=== PATIENT | female | born 1995 | race Caucasian/White ===

== ENCOUNTER → 2019-12-02 | Outpatient (CLI) | payer MEDICAID, OTHER ==
[~2019-12-02] MED LIST: MULT-974 PO
--- NOTE | 2019-12-02 14:45 | Diagnostic Imaging Report ---
INDICATION: survey. TECHNIQUE: Multiple real-time grayscale images were obtained over the gravid uterus. COMPARISON: None FINDINGS: There is a single live fetus in a cephalic presentation. heart rate was recorded at 150 beats per minute. Placenta is anterior. Amniotic fluid index is within normal limits. survey shows kidneys, bladder, and stomach to be unremarkable. There is a four-chamber heart. There is a three-vessel cord with normal insertion. spine is somewhat limited in evaluation. brain was limited in evaluation. Biometrical measurements are as follows: Biparietal 4.96 cm, age 21 weeks 1 days. Head circumference 18.32 cm, age 20 weeks 5 days. Abdominal circumference 15.47 cm, age 20 weeks 5 days. Femur length 3.53 cm, age 21 weeks 2 days. Sonographic estimate age: 21 weeks 0 days. Sonographic estimated date of delivery: 04/13/2020. Estimated Weight: 383 gm (+/- 56 gm). LMP percentile: 54%. heart rate: 150 beats per minute. number: 1 of 1. IMPRESSION: Single live IUP of 21 weeks 0 days gestational age. Estimated date of confinement sonographically is 04/13/2020. survey is unremarkable, although brain and spine are somewhat limited in evaluation. Dictated by: Dictated on workstation # [id number]
== END ==
LOC: RAD 10:43
PROVIDERS: ATTEND Obstetrics & Gynecology
DX: Z34.91 Encounter for supervision of normal pregnancy, unspecified, first trimester (principal); Z3A.21 21 weeks gestation of pregnancy
CPT/HCPCS: 76805

== ENCOUNTER 2020-04-06 15:54 | Inpatient (IN) | payer OTHER ==
[2020-04-06] VITALS (32 sets, daily range): BP systolic 116–166; BP diastolic 61–87
[~2020-04-06] VITALS: Ht 167.7 cm; Wt 72.8 kg
[~2020-04-06 15:54] MED LIST changes: +ERYTHROMYCIN OPHTH OINT 1 GM (SINGLE USE) TUBE ONE; +PETROLATUM JELLY(VASELINE) 49 GM JAR ONE; +PHYTONADIONE (VIT. K) NEONATAL 1 MG/0.5 ML AMP ONE
[2020-04-06] MEDS ORDERED: D5 LR IV SOLUTION 1,000 ML IV SCH (16:01)
--- NOTE | 2020-04-06 16:04 | NUR ---
JCARLOS LITTLE presented to unit via ambulatory, accompanied by , for augmentation of labor. JCARLOS LITTLE weighed, gowned, voided, and to bed. EFHM and TOCO applied, VS taken. JCARLOS LITTLE oriented to bed controls, call light, TV, heat, and A/C controls.
[2020-04-06] MEDS ORDERED: MINERAL OIL CONCENTRATE 99.9% 15 ML UDC TOP PRN (16:15)
[2020-04-06 16:38] LABS: BASOPHILS % (AUTO) 0 % (0-10); EOSINOPHILS # (AUTO) 0.1 10^3/uL (0.0-0.3); EOSINOPHILS % (AUTO) 0 % (0-10); HEMATOCRIT 30 % (35-52); LYMPHOCYTES # (AUTO) 1.1 X 10^3 (1.0-4.0); LYMPHOCYTES % (AUTO) 10 % (12-44); MEAN CORPUSCULAR HEMOGLOBIN 28 PG (25-34); MEAN CORPUSCULAR HGB CONC 33 G/DL (32-36); MEAN CORPUSCULAR VOLUME 85 FL (80-99); MEAN PLATELET VOLUME 10.5 FL (7.4-10.4); MONOCYTES # (AUTO) 0.9 X 10^3 (0.0-1.0); MONOCYTES % (AUTO) 7 % (0-12); NEUTROPHILS # (AUTO) 9.7 X 10^3 (1.8-7.8); NEUTROPHILS % (AUTO) 82 % (42-75); PLATELET COUNT 231 10^3/uL (130-400); RED CELL DISTRIBUTION WIDTH 12.9 % (10.0-14.5); WHITE BLOOD COUNT 11.8 10^3/uL (4.3-11.0)
--- NOTE | 2020-04-06 16:50 | NUR ---
Jaylen Gay CRNA called for epidural placement. Plan to get epidural before Dr Foster comes to [facility].
[2020-04-06] MEDS ORDERED: fentaNYL 2 mcg/ml BUPIVA 0.125 100 ML ONE (17:23)
--- OUTSIDE RECORDS SUMMARY | 2020-04-06 17:50 | XMS REPORT | Continuity of Care Document ---
Author Organization Unknown Address Unknown Phone Unavailable Allergies Active Description Code Type Severity Reaction Onset Reported/Identified Relationship to Patient Clinical Status Yes No Known Drug Allergies [id number] Drug Allergy Unknown N/A 12/28/2013 Medications There is no data. Problems Date Dx Coded Attending Type Code Diagnosis Diagnosed By 04/06/2020 CONSUELO ESPINOZA DO Ot Z34.9 1 ENCNTR FOR SUPRVSN OF NORMAL PREG, UNSP, 04/06/2020 CONSUELO ESPINOZA DO Ot Z3A.2 1 21 WEEKS GESTATION OF 04/06/2020 CONSUELO ESPINOZA DO Ot Z34.9 1 ENCNTR FOR SUPRVSN OF NORMAL PREG, UNSP, 04/06/2020 CONSUELO ESPINOZA DO Ot Z3A.2 1 21 WEEKS GESTATION OF Procedures There is no data. Results Test Result Range Complete blood count (CBC) with automate d white blood cell (WBC) differential - 04/06/20 16:25 Blood leukocytes automated count (number/volume) 11.8 10*3/uL 4.3-11.0 Blood erythrocytes automated count (number/volume) 3.57 10*6/uL 4.35-5.85 Venous blood hemoglobin measurement (mass/volume) 10.0 g/dL 11.5-16.0 Blood hematocrit (volume fraction) 30 % 35-52 Automated erythrocyte mean corpuscular volume 85 [ foz_us] 80-99 Automated erythrocyte mean corpuscular h emoglobin (mass per erythrocyte) 28 pg 25-34 Automated erythrocyte mean corpuscular h emoglobin concentration measurement (mass/volume) 33 g/dL 32-36 Automated erythrocyte distribution width ratio 12. 9 % 10.0- 14.5 Automated blood platelet count (count/volume) 231 10*3/uL 130-400 Automated blood platelet mean volume measurement 10.5 [foz_us] 7.4-10.4 Automated blood neutrophils/100 leukocytes 82 % 42-75 Automated blood lymphocytes/100 leukocytes 10 % 12-44 Blood monocytes/100 leukocytes 7 % 0-12 Automated blood eosinophils/100 leukocytes 0 % 0-10 Automated blood basophils/100 leukocytes 0 % 0-10 Blood neutrophils automated count (number/volume) 9.7 10*3 1.8-7.8 Blood lymphocytes automated count (number/volume) 1.1 10*3 1.0-4.0 Blood monocytes automated count (number/volume) 0. 9 10*3 0.0-1.0 Automated eosinophil count 0.1 10*3/uL 0 .0-0.3 Automated blood basophil count (count/volume) 0.0 10*3/uL 0.0-0.1 Blood type T Indirect antibody screen pa baldev - 04/06/20 16:25 WRISTBAND NUMBER [id number] NRG ABO+Rh group AP NRG Blood group antibody screen NEGATIVE NR G Encounters ACCT No. Visit Date/Time Discharge Status Pt. Type Provider Facility Loc./Unit Complaint [id number] 12/02/2019 10:43:00 020 23:59:59 CLS Outpatient CONSUELO ESPINOZA DO Via [facility] RAD SURVEY [id number] 12/28/2013 22:31:00 014 01:05:00 DIS Emergency [id number] 04/06/2020 15:54:[address] Inpatient CONSUELO ESPINOZA DO Via [facility] LDRP INDUCTION
[2020-04-06] MEDS ORDERED: LACTATED RINGERS 1,000 ML IV SCH (17:59)
[2020-04-06] MEDS ORDERED: NALOXONE 0.4 MG/ML 1 ML (NARCAN) VIAL IV PRN ×2 (18:00)
[2020-04-06] MEDS ORDERED: ONDANSETRON 4 MG/2 ML (SDV) Z0FRAN IV PRN (18:00)
[2020-04-06] MEDS ORDERED: EPIDURAL (fentaNYL 2 MCG/ML BUPIVA 0.125%)100 ML BAG EPI SCH (18:00)
[2020-04-06] MEDS ORDERED: diphenhydrAMINE 50 MG/ML INJ (BENADRYL) IV PRN (18:00)
[2020-04-06] MEDS ORDERED: METOCLOPRAMIDE INJ 10 MG/2 ML (REGLAN) IV PRN (18:00)
--- NOTE | 2020-04-06 18:17 | NUR ---
Dr Foster updated on pt status. Epidural placed. UC 2-4 min, pt does not CO pain. Reactive FHT. SVE 7cm per this RN.
--- NOTE | 2020-04-06 19:14 | NUR ---
Report given to Sydney Will RN. Dr Foster at bedside for SVE and AR[facility].
[2020-04-06] MEDS ORDERED: OXYTOCIN PRE-MIX DRIP 500 ML IV ONE (19:18)
[2020-04-06] MEDS ORDERED: LIDOCAINE 1% INJ 20 ML 20 ML VIAL ONE (19:18)
[2020-04-06] MEDS ORDERED: OXYTOCIN PRE-MIX DRIP 500 ML IV SCH (20:33)
[2020-04-06] MEDS ORDERED: CATHETER FLUSH 10 ML SYR IV SCH (22:00)
[2020-04-07] VITALS (10 sets, daily range): BP systolic 111–132; BP diastolic 57–75
[2020-04-07] MEDS ORDERED: MISOPROSTOL 200 MCG (CYTOTEC) TABLET ONE (00:10)
[2020-04-07] MEDS ORDERED: OXYTOCIN PRE-MIX DRIP 500 ML IV SCH (00:12)
--- NOTE | 2020-04-07 00:12 | NUR ---
fundal massage given. no bleeding noted at this time. Informed dr hawkins that this rn will hold rectal cytotec.
[2020-04-07] MEDS ORDERED: WITCH HAZEL(TUCKS) 40 EA JAR TOP PRN (00:15)
[2020-04-07] MEDS ORDERED: BENZOCAINE/MENTHOL (DERMOPLAST) 60 ML CAN TP PRN (00:15)
[2020-04-07] MEDS ORDERED: TETANUS,DIPTH,PERTUSS P/F (BOOSTRIX) 0.5 ML VIAL IM ONE (00:15)
[2020-04-07] MEDS ORDERED: DIBUCAINE (NUPERCAINAL) 1% OINT 30 GM TOP PRN (00:15)
[2020-04-07] MEDS ORDERED: MISOPROSTOL 200 MCG (CYTOTEC) TABLET PR ONE (00:15)
[2020-04-07] MEDS ORDERED: MEASLES,MUMPS,RUBELLA 1 EA INJ SQ ONE (00:15)
--- NOTE | 2020-04-07 00:20 | OB Labor & Delivery Record ---
Vag Delivery Note Vag Delivery Note Date of Delivery: 04/07/20 Preoperative Diagnosis: Stefanie Hernandez is a 24 /Para 1/ 0,Gestational Age 38 6/7 weeks, in labor (scheduled for induction on 04/07/20) Postoperative Diagnosis: Same Surgeon: CONSUELO ESPINOZA Anesthesia: epidural Delivery Type: vaginal Findings: Viable female infant, apgars 8/9, weight 7#14 oun stuart Lacerations: Intact placenta with 3 vessel cord. No nuchal cord, body cord or shoulder dystocia Cytotec 800 mcg placed for hemorrhage prophylaxis Estimated Blood Loss: 400 ml Complications: None Condition: Stable Description of Procedure: The patient is a 24 year old female who presented from the office for labor (she was 7 cm dilated in the office). She was admitted and informed consent was obtained. Her labor course was remarkable for AROM. And Augmentation. She progressed to complete dilatation and began to push. She was then set up for delivery. The infant's head was delivered atraumatically in the JEREMIAS position. The shoulders and remainder of the infant's body were then delivered without difficulty. Upon delivery, the head was held below the level of the perineum and the mouth and nares were bulb suctioned. The cord was doubly clamped and cut and the infant was handed off to the pediatric staff. An intact placenta with 3-vessel cord delivered via Carlos Manuel and there was found to be minimal bleeding.~ Vigorous fundal massage was performed and the fundus was found to be firm. IV oxytocin was given. Examination of the vagina and perineum revealed a 2nd laceration repaired in the usual fashion with 3-0 vicryl suture. Following the repair, sponge, instrument and needle counts were correct. Mom and baby were both in stable condition in the labor suite. Vitals - Labs Vital Signs - I&O Vital Signs Date Time Temp Pulse Resp B/P (MAP) Pulse Ox O2 Delivery O2 Flow Rate FiO2 04/06/20 22:00 87 126/82 (97) 100 Room Air 04/06/20 21:45 90 125/78 (94) 100 Room Air 04/06/20 21:30 85 116/72 (87) 100 Room Air 04/06/20 21:15 89 99 Room Air 04/06/20 21:00 93 117/65 (82) 98 Room Air 04/06/20 20:45 84 123/73 (90) 100 Room Air 04/06/20 20:30 36.6 78 120/73 (89) 100 Room Air 04/06/20 20:15 86 123/76 (92) 100 Room Air 04/06/20 20:00 78 125/70 (88) 100 Room Air 04/06/20 19:45 84 123/80 (94) 100 Room Air 04/06/20 19:30 78 130/75 (93) 100 Room Air 04/06/20 19:15 35.8 86 124/75 (91) 100 Room Air 04/06/20 18:55 126/73 (90) 100 Room Air 04/06/20 18:50 96 129/75 (93) 100 Room Air 04/06/20 18:45 86 126/73 (90) 100 Room Air 04/06/20 18:40 93 135/69 (91) 100 Room Air 04/06/20 18:35 90 131/61 (84) 100 Room Air 04/06/20 18:30 88 128/64 (85) 100 Room Air 04/06/20 18:25 87 126/67 (86) 100 Room Air 04/06/20 18:20 93 127/66 (86) 100 Room Air 04/06/20 18:17 95 127/67 (87) 100 Room Air 04/06/20 18:14 94 129/67 (87) 100 Room Air 04/06/20 18:11 91 130/69 (89) 100 Room Air 04/06/20 18:08 94 129/69 (89) 100 Room Air 04/06/20 18:05 101 126/74 (91) 100 Room Air 04/06/20 18:02 90 122/66 (84) 100 Room Air 04/06/20 17:59 90 124/68 (86) 100 Room Air 04/06/20 17:56 95 124/69 (87) 100 Room Air 04/06/20 17:50 90 121/66 (84) 100 Room Air 04/06/20 16:15 36.5 83 16 125/78 (94) 100 Room Air 04/06/20 16:15 36.5 83 16 100 Room Air Labs Laboratory Tests 04/06/20 16:25: White Blood Count 11.8H, Red Blood Count 3.57L, Hemoglobin 10.0L, Hematocrit 30L , Mean Corpuscular Volume 85, Mean Corpuscular Hemoglobin 28, Mean Corpuscular Hemoglobin Concent 33, Red Cell Distribution Width 12.9, Platelet Count 231, Mean Platelet Volume 10.5H, Neutrophils (%) (Auto) 82H, Lymphocytes (%) (Auto) 10L, Monocytes (%) (Auto) 7, Eosinophils (%) (Auto) 0, Basophils (%) (Auto) 0, Neutrophils # (Auto) 9.7H, Lymphocytes # (Auto) 1.1, Monocytes # (Auto) 0.9, Eosinophils # (Auto) 0.1, Basophils # (Auto) 0.0 CONSUELO ESPINOZA DO Apr 07, 2020 00:20
[2020-04-07] MEDS ORDERED: FERR325T18 PO (00:23)
[2020-04-07] MEDS ORDERED: ACET-93 PO (00:23)
[2020-04-07] MEDS ORDERED: DCS100C PO (00:23)
[2020-04-07] MEDS ORDERED: IBUP-844 PO (00:23)
--- NOTE | 2020-04-07 00:27 | NUR ---
ff u/0. minimal rubra. pt denies needs at this time.
--- NOTE | 2020-04-07 00:27 | Discharge Inst-Women's Service ---
Discharge Inst-Women's Serv Depart Medication/Instructions New, Converted or Re-Newed RX: Other (Please call or transmit Rx to pharmacy of choice) Final Diagnosis Labor Advanced cervical dilation Problems Reviewed?: Yes Consults/Follow Up Additional Follow Up: Yes (1 week with [facility]; 6 weeks for pp exam) Activity Activity: Activity as Tolerated Driving Instructions: You May Drive NO SMOKING: NO SMOKING Nothing Inside Vagina: No Douching, No [place], No Tampons Diet Discharge Diet: No Restrictions Symptoms to Report to : Swelling Increased, Bleeding Excessive, Pain Increased, Fever Over 101 Degrees F, Vaginal Bleeding Increase, Cramps in Feet or Legs, Vaginal Discharge Foul For Any Problems or Questions: Contact Your Physician Skin/Wound Care Bathing Instructions: CONSUELO Rodriguez DO Apr 07, 2020 00:27
--- NOTE | 2020-04-07 00:42 | NUR ---
Pt at this time. fundal massage done. ff u/0. minimal rubra noted.
--- NOTE | 2020-04-07 00:57 | NUR ---
ff u/0. Minimal rubra. Pt holding infant. Bonding well.
[2020-04-07] MEDS ORDERED: IBUPROFEN 600 MG (MOTRIN) TAB PO ONE (01:17)
--- NOTE | 2020-04-07 01:20 | NUR ---
This rn called to room. pt vomitting. ff u/0, minimal rubra. cool rag given. zofran given per anesthesia's orders. So at bedside holding . Pt states feeling better. Lights dimmed.
[2020-04-07] MEDS: IBUPROFEN 600 MG (MOTRIN) TAB PO SCH ×3 (01:22→17:31)
--- NOTE | 2020-04-07 01:55 | NUR ---
Pt sitting in dim room with so and at bedside. States nausea is better. fundal massage done. minimal rubra. v pad saturated, whitley care done and pad changed. panties on. gown changed. epidural catheter removed and bandaid to site. pt transferred to . moved to room 310 per accompanied by this rn, so, , and mckenna somers, rn. Pt to bed, oriented to room, call light in reach, instructions given. mckenna somers in room giving instructions. will monitor.
[2020-04-07] MEDS ORDERED: CATHETER FLUSH 10 ML SYR IV SCH (06:00)
--- NOTE | 2020-04-07 10:32 | Progress Note ---
Standard Progress Note Progress Notes/Assess & Plan Date Seen by a Provider: Apr 07, 2020 Time Seen by a Provider: 10:15 Progress/Assessment & Plan Subjective: Ms. Hernandez is PPD #0 from a . This morning she admits to feeling better today than yesterday and admits that the bleeding has slowed. Objective: Vital signs are stable Heart: Regular rate and rhythm without appreciable murmur Lungs: Clear to auscultation with good respiratory effort Abdomen: Good bowel sounds, no rebound or guarding, fundus 6 cm below umbilicus that is mildly tender Extremities: No cyanosis or clubbing, trace edema of lower extremities Assessment: PPD#0 Plan: care and pain management. SAHARA GONZALEZ DO Apr 07, 2020 10:32
[2020-04-07] MEDS: ACETAMINOPHEN 500 MG TAB (TYLENOL) PO SCH ×2 (10:33→20:16)
[2020-04-07] MEDS: PRENATAL VITAMIN 1 EA TAB PO SCH (10:33)
[2020-04-07] MEDS: DOCUSATE SODIUM 100 MG (COLACE) CAP PO SCH ×2 (10:33→20:16)
--- NOTE | 2020-04-07 10:34 | Anesthesia-Regional Post-Op ---
Regional Patient Condition Mental Status: Alert, Oriented x3 Circulation: Same as Pre-Op Headache: Absent Sensation: Full Recovery Motor Block: Absent Post Op Complications Complications None Follow Up Care/Instructions Patient Instructions None needed. Anesthesia/Patient Condition Patient is doing well, no complaints, stable vital signs, no apparent adverse anesthesia problems. No complications reported per nursing. ASHLEE STEPHEN CRNA Apr 07, 2020 10:34
[2020-04-07] MEDS: FERROUS SULF 325 MG (IRON) TAB PO SCH (10:35)
--- NOTE | 2020-04-07 10:38 | NUR ---
initial shift assessment completed, see interventions for further.
--- NOTE | 2020-04-07 15:20 | NUR ---
infant remains in room- no c/o's voiced.
--- NOTE | 2020-04-07 19:16 | NUR ---
report given to next shift.
--- NOTE | 2020-04-07 20:10 | NUR ---
INITIAL SHIFT ASSESSMENT DONE. PT C/O MILD ABD CRAMPING AND DISCOMFORT. TYLENOL ADMINISTERED. PT DENIES ANY FURTHER NEEDS AT THIS TIME. AND BABY AT SIDE.
--- NOTE | 2020-04-07 22:02 | NUR ---
PT REPORTS PAIN CONTROLLED WITH TYLENOL. DENIES ANY NEEDS AT THIS TIME.
--- NOTE | 2020-04-08 | NUR ---
MOTRIN ADMINISTERED. PT DENIES ANY NEEDS OR C/O'S.
[2020-04-08] MEDS: IBUPROFEN 600 MG (MOTRIN) TAB PO SCH ×2 (00:02→06:07)
--- NOTE | 2020-04-08 02:10 | NUR ---
PT NOTED TO BE SLEEPING WITH BABY IN ARMS. BABY PLACED IN OPEN CRIB AND PT RETURNS TO SLEEP WITHOUT C/O'S.
[2020-04-08 04:00] VITALS: BP 106/69
[2020-04-08] MEDS: ACETAMINOPHEN 500 MG TAB (TYLENOL) PO SCH (04:00)
--- NOTE | 2020-04-08 04:00 | NUR ---
PT AWAKENED FOR TYLENOL ADMINISTRATION. DENIES ANY FURTHER NEEDS.
[2020-04-08 05:00] LABS: BASOPHILS % (AUTO) 0 % (0-10); EOSINOPHILS # (AUTO) 0.2 10^3/uL (0.0-0.3); EOSINOPHILS % (AUTO) 2 % (0-10); HEMATOCRIT 25 % (35-52); LYMPHOCYTES # (AUTO) 1.9 X 10^3 (1.0-4.0); LYMPHOCYTES % (AUTO) 22 % (12-44); MEAN CORPUSCULAR HEMOGLOBIN 28 PG (25-34); MEAN CORPUSCULAR HGB CONC 32 G/DL (32-36); MEAN CORPUSCULAR VOLUME 87 FL (80-99); MEAN PLATELET VOLUME 10.2 FL (7.4-10.4); MONOCYTES # (AUTO) 0.8 X 10^3 (0.0-1.0); MONOCYTES % (AUTO) 9 % (0-12); NEUTROPHILS # (AUTO) 5.9 X 10^3 (1.8-7.8); NEUTROPHILS % (AUTO) 68 % (42-75); PLATELET COUNT 179 10^3/uL (130-400); RED CELL DISTRIBUTION WIDTH 12.8 % (10.0-14.5); WHITE BLOOD COUNT 8.7 10^3/uL (4.3-11.0)
--- NOTE | 2020-04-08 06:00 | NUR ---
MOTRIN ADMINISTERED. PT PREPARING TO BREASTFEED INFANT. DENIES PAIN, NEEDS OR C/O'S.
--- NOTE | 2020-04-08 07:00 | NUR ---
report from Nitin Brambila RN.
--- NOTE | 2020-04-08 08:08 | NUR ---
dr rosa here and to room for exam. order to discharge to home.
--- NOTE | 2020-04-08 08:24 | Discharge Summary ---
Diagnosis/Chief Complaint Date of Admission Apr 06, 2020 at 15:54 Date of Discharge April 08, 2020 Discharge Date: Apr 08, 2020 Discharge Time: 08:20 Admission Diagnosis Admission Diagnosis Intrauterine at 38 6/7 weeks--in labor Discharge Diagnosis Intrauterine at 38 6/7 weeks--in labor--delivered Reason Hospital Visit Onset of labor Discharge Summary Hospital Course Was the Problem List Reviewed?: Yes Hospital Course Ms. Hernandez, A0 at 38 6/7 weeks, presented to the hospital with the onset of labor. Her labor was augmented with Pitocin and AROM. She progressed to complete, delivered a healthy viable female . She sustained a second degree perineal laceration that was repaired in the normal sterile fashion. The remainder of her hospitalization was unremarkable. Her vital signs remained stable throughout her hospitalization. She will be discharge to home with instructions, prescriptions, and a follow up appointment with Dr. Foster. Labs Laboratory Tests 04/06/20 16:25: White Blood Count 11.8H, Red Blood Count 3.57L, Hemoglobin 10.0L, Hematocrit 30L , Mean Platelet Volume 10.5H, Neutrophils (%) (Auto) 82H, Lymphocytes (%) (Auto) 10L, Neutrophils # (Auto) 9.7H 04/08/20 04:43: Red Blood Count 2.84L, Hemoglobin 8.0L, Hematocrit 25L Procedures None. Discharge Physical Examination Allergies: Coded Allergies: No Known Drug Allergies (Unverified , 12/28/13) Vitals & I&Os Vital Signs Date Time Temp Pulse Resp B/P (MAP) Pulse Ox O2 Delivery O2 Flow Rate FiO2 04/08/20 04:00 36.3 74 16 106/69 (81) 99 Room Air General Appearance: Alert, Oriented X3, Cooperative HEENT: Atraumatic Respiratory: Clear to Auscultation, Normal Air Movement Cardiovascular: Regular Rate, No Murmurs Abdominal: Normal Bowel Sounds, Soft, No Tenderness Extremities: No Clubbing, No Cyanosis Skin: No Rashes Neuro: Normal Gait, Normal Speech Psych/Mental Status: Mental Status NL Discharge Home Medications Reviewed and agree with Discharge Medication list on patient's Discharge Instruction sheet Instructions to Patient/Family Please see electronic discharge instructions given to patient. Clinical Quality Measures DVT/VTE Risk/Contraindication: Risk Factor Score Per Nursin RFS Level Per Nursing on Admit: 1=Low/No VTE PPX SEALS,SAHARA E DO Apr 08, 2020 08:24
[2020-04-08 09:00] VITALS: BP 127/60
--- NOTE | 2020-04-08 09:00 | NUR ---
PT resting in bed. denies c/o's resp unlabored. breath sounds CTA. HRRR. abd soft with FFu/2 . vag flow LT rubra. Pt reports decrease in vag flow. denies pain or need for pain medication. pt denied any pain in lower extremities. plan of care reviewed R/T discharge to home
[2020-04-08] MEDS: PRENATAL VITAMIN 1 EA TAB PO SCH (09:06)
[2020-04-08] MEDS: FERROUS SULF 325 MG (IRON) TAB PO SCH (09:06)
[2020-04-08] MEDS: DOCUSATE SODIUM 100 MG (COLACE) CAP PO SCH (09:07)
--- NOTE | 2020-04-08 09:45 | NUR ---
home care instructions reviewed. follow up appointments reviewed for pt to call next week for 1 week and 6 week appointment care reviewed. pt acknowledges understanding of instructions verbally and with her signature.
--- NOTE | 2020-04-08 10:20 | NUR ---
pt discharge to family vehicle via wheelchair with in arms. infant belted in rear facing car seat
== END 2020-04-08 10:20 | disposition home or self-care (01) | DRG 807 ==
LOC: LDRP 15:54
PROVIDERS: ADMIT Obstetrics & Gynecology; ATTEND Obstetrics & Gynecology
PROC: 10E0XZZ Delivery of Products of Conception, External Approach (ICD-10-PCS; principal; 2020-04-07)
PROC: 0KQM0ZZ Repair Perineum Muscle, Open Approach (ICD-10-PCS; 2020-04-07)
DX: O70.1 Second degree perineal laceration during delivery (principal); Z37.0 Single live birth; Z3A.38 38 weeks gestation of pregnancy
CPT/HCPCS: 36415; 85025; 86850; 86900; 86901

== ENCOUNTER 2021-07-13 11:15 | Outpatient (CLI) | payer OTHER ==
[~2021-07-13] VITALS: Ht 167.6 cm; Wt 65.9 kg
[2021-07-13 11:10] VITALS: BP 110/69
[~2021-07-13 11:15] MED LIST changes: +ACET-93 PO; +DOCU-239 PO; -ERYTHROMYCIN OPHTH OINT 1 GM (SINGLE USE) TUBE ONE; +FERR325T18 PO; +IBUP-844 PO; -PETROLATUM JELLY(VASELINE) 49 GM JAR ONE; -PHYTONADIONE (VIT. K) NEONATAL 1 MG/0.5 ML AMP ONE
[2021-07-13] MEDS ORDERED: ACETAMINOPHEN 500 MG TAB (TYLENOL) PO PRN (11:30)
[2021-07-13] MEDS ORDERED: ONDANSETRON 4 MG/2 ML (SDV) Z0FRAN IV PRN (11:30)
[2021-07-13] MEDS ORDERED: EPINEPHrine INJECTION 1 MG/ML AMP IM PRN (11:30)
[2021-07-13] MEDS ORDERED: diphenhydrAMINE 50 MG/ML INJ (BENADRYL) IV PRN (11:30)
[2021-07-13] MEDS ORDERED: CASIRIVIMAB/IMDEVIMAB 1,200 MG in NS (IVPB) 250 ML IV ONE (11:30)
[2021-07-13 12:40] VITALS: BP 94/58
== END 2021-07-13 13:37 | disposition home or self-care (01) ==
LOC: INFUSION 11:15
PROVIDERS: ATTEND Physician Assistant
DX: U07.1 COVID-19 (principal)

== ENCOUNTER → 2023-06-23 | Outpatient (CLI) | payer OTHER ==
--- NOTE | 2023-06-23 20:23 | Diagnostic Imaging Report ---
INDICATION: survey. TECHNIQUE: Multiple real-time grayscale images were obtained over the gravid uterus. COMPARISON: No priors. Waters viable IUP measures 20 weeks 0 day. Sonographic date of confinement 11/10/2023. Positioning is cephalic. There is a normal volume amniotic fluid. The ARA 12 cm. The anterior placenta appeared normal. No abruption or previa. There is a heart rate of 142 bpm, regular. Cervix nondilated at 3.1 cm. The tip of the placenta is 8 cm from the os. The anatomical survey was normal. IMPRESSION: 20 weeks 0 day waters viable IUP with no pathological finding identified. FINDINGS: Biometrical measurements are as follows: Biparietal 4.81 cm, age 20 weeks 4 days. Head circumference 17.61 cm, age 20 weeks 1 days. Abdominal circumference 14.63 cm, age 20 weeks 0 days. Femur length 2.89 cm, age 19 weeks 0 days. Sonographic estimate age: 20 weeks 0 days. Sonographic estimated date of delivery: 11/10/23. Estimated Weight: 299 gm (+/- 44 gm). LMP percentile: 17%. heart rate: 142 beats per minute. number: 1 of 1. Dictated on workstation # [id number]
== END ==
LOC: RAD 14:59
PROVIDERS: ATTEND Obstetrics & Gynecology
DX: Z36.89 Encounter for other specified antenatal screening (principal); Z3A.20 20 weeks gestation of pregnancy
CPT/HCPCS: 76805